=== PATIENT | female | born 1950 | race African-American/Black ===

== ENCOUNTER → 2019-11-04 | Day surgery (SDC) | payer MEDICARE ==
[2019-10-27 13:51] LABS: BASOPHILS % 0.4 % (0.0-1.0); EOSINOPHILS # (AUTO) 0.1 (0.0-0.4); EOSINOPHILS % 1.7 % (0.0-6.0); HEMATOCRIT 35.8 % (34.2-44.1); HEMOGLOBIN 11.5 g/dL (12.0-16.0); LYMPHOCYTES # (AUTO) 2.4 (1.0-3.2); LYMPHOCYTES % 44.7 % (18.0-39.1); MEAN CORPUSCULAR HEMOGLOBIN 27.4 pg (28-32); MEAN CORPUSCULAR HGB CONC 32.1 g/dL (31-35); MEAN CORPUSCULAR VOLUME 85.4 fL (81-99); MONOCYTES # (AUTO) 0.4 (0.2-0.8); MONOCYTES % 7.4 % (4.4-11.3); NEUTROPHILS # (AUTO) 2.4 (2.1-6.9); NEUTROPHILS % 45.6 % (38.7-80.0); PLATELET COUNT 193 x10e3/uL (140-360); RED BLOOD COUNT 4.19 x10e6/uL (3.6-5.1); RED CELL DISTRIBUTION WIDTH 14.8 % (11.7-14.4)
[~2019-11-04] MED LIST: FENTANYL CITRATE/PF 100MCG/2 ML INJ ONE; GLUCAGON FOR INJ 1 MG VIAL ONE; HYDROCHLOROTHIA25 MG PO; MAGNESIUM; MAGNESIUM OXID400 MG PO; MIDAZOLAM HCL 2 MG/2 ML VIAL ONE; PROPOFOL IV EMULSION 10 MG/ML 50 ML VIAL ONE; VITAMIN C1000 MG PO
--- OUTSIDE RECORDS SUMMARY | 2019-11-04 09:15 | XMS REPORT | Summary of Care ---
Author Author LOLITA HARTMANN N.P. Unknown Address Unknown Phone Unavailable Care Team Providers Care Workers Compensation Manager Name Role Phone [facility], PROVIDER Unavailable Unavailable MARLON SIMONS N.P. Unavailable Unavailable VICTORIANO ENCARNACION NYLUL Unavailable Unavailable Unavailable Unavailable Functional Status Name Dates Details Functional status health issues are not documented Status: Name Dates Details Cognitive status health issues are not documented Status: Problems Name Dates Details Screening for breast cancer (V76.10, Z12.31) Status: Active Postmenopausal bleeding (627.1, N95.0) Status: Active Adenocarcinoma of endometrium (182.0, C54.1) Status: Active Constipation (564.00, K59.00) Status: Active Medications Name Dates Details hydroCHLOROthiazide 25 MG Oral Tablet Active Vitamin C 500 MG Oral Tablet * Refills: 0 Active Vitamin D3 5000 UNIT Oral Tablet * Refills: 0 Active Folic Acid TABS * Refills: 0 Active Senna S 8.6-50 MG Oral Tablet TAKE 1 OR 2 TABLETS DAILY TO PREVENT CONSTIPATION. * Quantity: 30 Refills: 0 MARLON SIMONS N.P. * Start : 29-Oct-2018 Active Allergies and Adverse Reactions Name Dates Details No Known Drug Allergies (Allergy) Status: Active Past Medical History Name Dates Details History of depression (V11.8, Z86.59) Status: Resolved History of fatty infiltration of liver (V12.79, Z87.19) Status: Resolved History of Heart problem (429.9, I51.9) Status: Resolved History of hypertension (V12.59, Z86.79) Status: Resolved History of morbid obesity (V13.89, Z87.898) Status: Resolved History of Prediabetes (790.29, R73.03) Status: Resolved Procedures Procedure Dates Details History of Uterine myomectomy Completed History of Tubal ligation bilateral Completed History of Hysterectomy Completed Immunization Name Dates Details Immunizations not documented Family History Name Dates Details Family history of (798.2, R99) Status: Active Name Dates Details Family history of (798.2, R99) Status: Active Name Dates Details Family history of (798.2, R99) Status: Active Name Dates Details Family history of diabetes mellitus (V18.0, Z83.3) Status: Active Family history of hypertension (V17.49, Z82.49) Status: Active Family history of cerebrovascular accident (CVA) (V17.1, Z82.3) Status: Active Family history of myocardial infarction (V17.3, Z82.49) Status: Active Family history of (798.2, R99) Status: Active Name Dates Details Family history of myocardial infarction (V17.3, Z82.49) Status: Active Family history of (798.2, R99) Status: Active Name Dates Details Family history of diabetes mellitus (V18.0, Z83.3) Status: Active Family history of renal failure (V18.69, Z84.1) Status: Active Family history of (798.2, R99) Status: Active Name Dates Details Family history of cardiac disorder (V17.49, Z82.49) Status: Active Family history of malignant neoplasm of colon (V16.0, Z80.0) Status: Active Family history of glaucoma (V19.11, Z83.511) Status: Active Family history of (798.2, R99) Status: Active Name Dates Details Family history of (798.2, R99) Status: Active Social History Name Dates Details - Status: Name Dates Details Former smoker Vital Signs Date Test Result Details [id number] BP Systolic 120 mm[Hg] Status: Comments: Location: LUE; Position: Sitting BP Diastolic 86 mm[Hg] Status: Comments: Location: LUE; Position: Sitting Height 159 cm Status: Weight 246.5 lb Status: Body Mass Index Calculated 44.23 kg/m2 Status: Body Surface Area Calculated 2.1 m2 Status: Temperature 98.3 f Status: Comments: Method: Oral Heart Rate 98 /min Status: Respiration Rate 18 /min Status: O2 SAT 97 % Status: Comments: Source: RA Results Date Description Value Details Results not documented Plan of Care Name Dates Details Planned Observations Planned Goals not documented Planned Encounters Gastroenterology Referral Appointment; LUL PASTRANA M.D. On: 29-Apr-2019 11:20 Interventions Provided Discussion/Summary* Ms. 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 She was dispositioned to surveillance at the [facility] tumor board consensus meeting. Today she presents for surveillance. * 1. Stage 1 A Grade 2 EMACA of endometrium: * - Pelvic exam done, ISREAL. * 2. Health maintenance * - MMG BR 1 benign (06/2018) * - Pt reported last colonoscopy was >10 years ago. Refer pt to GI for completion of colonoscopy. * RTC 3 month for surveillance. * Discussed above with patient and family (spent 20 minutes face to face). Questions answered. Instructions Name Dates Details Instructions not documented Encounters Appointment; LUL PASTRANA M.D. Encounter Diagnosis: Problem not documented On: 28-May-2018 14:00 Appointment; LUL PASTRANA M.D. Encounter Diagnosis: Problem not documented On: 22-Jul-2018 9:00 Appointment; LUL PASTRANA M.D. Encounter Diagnosis: Problem not documented On: 06-Aug-2018 14:00 Appointment; LUL PASTRANA M.D. Encounter Diagnosis: Problem not documented On: 09-Sep-2018 7:30 Appointment; LUL PASTRANA M.D. Encounter Diagnosis: Problem not documented On: 24-Sep-2018 9:40 Appointment; LUL PASTRANA M.D. Encounter Diagnosis: Problem not documented On: 29-Oct-2018 10:20 Appointment; [facility], PROVIDER Encounter Diagnosis: Problem not documented On: 28-Jan-2019 12:20
[2019-11-04 13:06] VITALS: BP 118/83
[2019-11-04 13:44] LABS: ALBUMIN 3.8 g/dL (3.5-5.0); ALBUMIN/GLOBULIN RATIO 1.1 (0.8-2.0); ANION GAP 12.2 mmol/L (8-16); CALCIUM 10.1 mg/dL (8.4-10.2); CREATININE, SERUM 1.15 mg/dL (0.57-1.11); POTASSIUM 3.2 mmol/L (3.5-5.1)
--- NOTE | 2019-11-04 18:35 | Operative Report ---
DATE OF PROCEDURE: 11/04/2019 SURGEON: Kenney Higgins MD PROCEDURES: EGD with biopsies and colonoscopy with polypectomy. INDICATIONS FOR EGD: Acid reflux, bloating INDICATIONS FOR COLONOSCOPY: Colorectal cancer screening. MEDICATIONS: The patient was done under MAC, please see anesthesiologist's note. PROCEDURE IN DETAIL: With the patient in the left lateral decubitus position, a flexible fiberoptic Olympus gastroscope was advanced into the esophagus under direct visualization without any difficulty. There were some patchy erythema noted in distal esophagus. Grade 1 esophageal varices were noted without active bleeding or stigmata of recent hemorrhage. The scope was then advanced with ease into the stomach traversing a small sliding hiatal hernia. The mucosa overlying the antrum and the body revealed some patchy areas of erythema. There was a focal friable nodularity noted in the mid incisura and biopsies were obtained. An approximately 8 mm ulcer was noted in the antrum without active bleeding or stigmata of recent hemorrhage. This was biopsied. Pylorus was then intubated with ease and the scope was advanced all the way to the second portion of the duodenum. The scope was then advanced all the way to the second portion of the duodenum. Mucosa overlying the proximal second portion and duodenal bulb appeared to be within normal limits. The scope was then withdrawn back into the stomach and retroflexed, and mucosa overlying the fundus and the cardia appeared to be within normal limits. The scope was then straightened out, it was subsequently withdrawn, and the patient tolerated the procedure well. IMPRESSION: 1. Distal esophagitis. 2. Grade 1 esophageal varices without active bleeding. 3. Gastritis, biopsied, biopsies sent to stain for Helicobacter pylori. 4. Focal nodularity and friability incisura, biopsied. 5. Gastric ulcer, antrum approximately 8 mm in size without active bleeding or stigmata of recent hemorrhage. Biopsies were obtained. PLAN: Follow up histology. Initiate Protonix 40 mg 1 p.o. before meals b.i.d. and Sucralfate 1 g p.o. before meals t.i.d. and at bedtime. The patient will need a followup colonoscopy in 6 to 8 weeks to document healing of the gastric ulcer. The scope was then advanced with ease into the rectum all the way to the cecum. Mucosa overlying the cecum grossly appeared to be within normal limits. There was one polyp was noted that was removed per snare electrocautery. An additional polyp in the ascending colon was hot biopsied. The transverse and descending appeared to be within normal limits. One polyp was hot biopsied from the sigmoid. There were some prominent rectal veins suspicious for rectal varices were noted. There was no active bleeding. The scope was then retroflexed into the distal rectum and moderate-sized internal hemorrhoids were noted, none of which was actively bleeding. The scope was then straightened out, it was subsequently withdrawn, and the patient tolerated the procedure well. IMPRESSION: 1. Cecal polyp removed per snare electrocautery. 2. Ascending colon polyp, hot biopsied. 3. Sigmoid colon polyp, hot biopsied. 4. Rectal varices without active bleeding or stigmata of recent hemorrhage. 5. Internal hemorrhoids, none actively bleeding. PLAN: Follow up histology. Kenney Higgins MD [facility] /[id number] cc: Iris Wong MD
== END | disposition home or self-care (01) ==
LOC: OR 09:13
PROVIDERS: ATTEND Internal Medicine Gastroenterology
DX: Z12.11 Encounter for screening for malignant neoplasm of colon (principal); K63.5 Polyp of colon; K29.50 Unspecified chronic gastritis without bleeding; K25.9 Gastric ulcer, unspecified as acute or chronic, without hemorrhage or perforation; K58.9 Irritable bowel syndrome, unspecified; K44.9 Diaphragmatic hernia without obstruction or gangrene; K20.9 Esophagitis, unspecified; I85.00 Esophageal varices without bleeding; K21.9 Gastro-esophageal reflux disease without esophagitis; K31.89 Other diseases of stomach and duodenum; I86.8 Varicose veins of other specified sites; B96.81 Helicobacter pylori [H. pylori] as the cause of diseases classified elsewhere; K64.8 Other hemorrhoids; I10 Essential (primary) hypertension; R00.1 Bradycardia, unspecified; M19.90 Unspecified osteoarthritis, unspecified site; E66.9 Obesity, unspecified; Z01.810 Encounter for preprocedural cardiovascular examination; Z01.812 Encounter for preprocedural laboratory examination; Z68.39 Body mass index [BMI] 39.0-39.9, adult; Z87.891 Personal history of nicotine dependence; Z80.0 Family history of malignant neoplasm of digestive organs
CPT/HCPCS: 36415 ×2; 43239; 45384; 45385; 80053; 85025; 88305; 88312; 93005; J1610; J2250; J2704; J3010